=== PATIENT | female | born 1980 | race Caucasian/White ===

== ENCOUNTER 2017-02-10 17:07 | Emergency (ER) | payer BC ==
[~2017-02-10 17:07] MED LIST: CHLO10 PO; TOPI25 PO; TRAZ50TA78 PO; XANA0.5T PO
[2017-02-10 17:16] VITALS: BP 176/100; PULSE 84; RESP 20; TEMP 98.5
--- NOTE | 2017-02-10 18:03 | PD ---
HPI Chief Complaint: Head Injury Time Seen by Provider: 17:55 Travel History International Travel<30 days: No Contact w/Intl Traveler<30days: No Traveled to known affect area: No History of Present Illness HPI Patient is a 36-year-old female who presents to emergency room for evaluation of headache. Patient reports that she tripped over her dog last night and fell backwards her head on a tile floor. Patient reports no loss of consciousness, denies any nausea or vomiting, reports posterior headache. Reports that she went to her pcp's office today and was told to go the ER for a CT study of her head. Patient with no vision changes, nausea vomiting this time. No other complaints. PFSH Past Medical History Blood Disorders: No Depression: Yes Diminished Hearing: No Endocrine: No Genitourinary: No Immune Disorder: No Musculoskeletal: No Psychiatric: Yes (Hx of treatment for Bipolar Disorder) Reproductive: No Respiratory: No ?: Not : 2 Para: 1 : 1 Tubal Ligation: Yes Past Surgical History Abdominal Surgery: No Appendectomy: Yes Cardiac Surgery: No Section: Yes Ear Surgery: No Endocrine Surgery: No Eye Surgery: No Genitourinary Surgery: No Gynecologic Surgery: No Oral Surgery: No Thoracic Surgery: No Social History Alcohol Use: Yes () Tobacco Use: No Substance Use: Yes () Allergies-Medications (Allergen,Severity, Reaction): Coded Allergies: penicillin G (Unverified Allergy, Severe, HIVES, 02/10/17) Reported Meds & Prescriptions Reported Meds & Active Scripts Active Desyrel (Trazodone HCl) 50 Mg Tab 100 Mg PO HS 14 Days Topamax (Topiramate) 25 Mg Tab 25 Mg PO Q12HR 7 Days Librium 10 mg Cap (Chlordiazepoxide) 10 Mg Cap 10 Mg PO TID take 1 pill TID for 1 day then 1 pill twice a day for 3 days then 1 pill daily for 3 days Reported Xanax 0.5 mg (Alprazolam) Alprazolam 0.5 mg Tab 1 Tab PO BID PRN Review of Systems General / Constitutional: No: Fever Eyes: No: Visual changes HENT: Positive: Headaches Cardiovascular: No: Chest Pain or Discomfort Respiratory: No: Shortness of Breath Gastrointestinal: No: Abdominal Pain Genitourinary: No: Dysuria Musculoskeletal: No: Pain Skin: No Rash Neurologic: Positive: Headache, No: Weakness Psychiatric: No: Depression Endocrine: No: Polydipsia Hematologic/Lymphatic: No: Easy Bruising Physical Exam Narrative GENERAL: NAD, Nontoxic SKIN: Focused skin assessment warm/dry. HEAD: Atraumatic. Normocephalic. EYES: Pupils equal and round. No scleral icterus. No injection or drainage. ENT: No nasal bleeding or discharge. Mucous membranes pink and moist. NECK: Trachea midline. No JVD. CARDIOVASCULAR: Regular rate and rhythm. No murmur appreciated. RESPIRATORY: No accessory muscle use. Clear to auscultation. Breath sounds equal bilaterally. GASTROINTESTINAL: Abdomen soft, non-tender, nondistended. Hepatic and splenic margins not palpable. MUSCULOSKELETAL: No obvious deformities. No clubbing. No cyanosis. No edema. NEUROLOGICAL: Awake and alert. No obvious cranial nerve deficits. Motor grossly within normal limits. Normal speech. CN 2-12 grossly intact with no neurological deficits PSYCHIATRIC: Appropriate mood and affect; insight and judgment normal. Data Data Last Documented VS Vital Signs Date Time Temp Pulse Resp B/P (MAP) Pulse Ox O2 Delivery O2 Flow Rate FiO2 02/10/17 17:16 98.5 84 20 176/100 (125) Orders Orders Ct Brain W/O Iv Contrast(Rout) (02/10/17 17:58) [facility] Medical Decision Making Medical Screen Exam Complete: Yes Emergency Medical Condition: Yes Interpretation(s) Vital Signs Date Time Temp Pulse Resp B/P (MAP) Pulse Ox O2 Delivery O2 Flow Rate FiO2 02/10/17 17:16 98.5 84 20 176/100 (125) Differential Diagnosis Differential includes concussion, intracranial hemorrhage, scalp hematoma Narrative Course Patient is a 36-year-old female who presents to emergency room complaints of headache. Reports that she tripped over her dog last night and hit the back of her head on a tile floor. Reports no LOC, no dizzyness. She was told to come to the ER for CT study of her head. Patient has benign neurological evaluation , CT of the head ordered at request of patient's primary care doctor. mechanical system technician went to bring patient to CT. Patient refuses further workup and walked out of the ER after informed consent. AMA: The risks of leaving against medical advice without further evaluation treatment were discussed with the patient. These risks include cardiac dysfunction, cardiac dysrhythmia, possible heart attack, possible stroke or . The patient indicated understanding of these risks and appeared to have the capacity to make this decision. Patient understands that she may return to the emergency room at any time should she require further medical workup for her symptoms. Diagnosis Primary Impression: Left against medical advice Patient Instructions: General Instructions Additional Instructions: You may return to the ER at any time should you be agreeable to medical workup for your symptoms Please follow up with your primary care doctor as soon as possible Disposition: 07 AGAINST MEDICAL ADVICE Condition: Serious Eduarda Chopra DO Feb 10, 2017 18:03
== END 2017-02-10 18:23 | disposition left against medical advice (07) ==
LOC: PHED 17:07 → PHEFT 18:23
DX: S09.90XA Unspecified injury of head, initial encounter (principal); W01.0XXA Fall on same level from slipping, tripping and stumbling without subsequent striking against object, initial encounter
CPT/HCPCS: 99281

== ENCOUNTER 2017-03-22 10:45 | Emergency (ER) | payer BC ==
[~2017-03-22] VITALS: Ht 154.9 cm; Wt 68.0 kg
[2017-03-22 10:48] VITALS: BP 127/79; PULSE 116; RESP 19; TEMP 97.8; O2SAT 96
[2017-03-22] MEDS ORDERED: BUPR150CR PO (11:10)
[2017-03-22] MEDS ORDERED: XANA1TAB2 PO (11:10)
[2017-03-22] MEDS ORDERED: TRAZ100T6 PO (11:10)
[2017-03-22] MEDS ORDERED: TOPA25TA8 PO (11:10)
[2017-03-22] MEDS ORDERED: SODIUM CHLOR 0.9% 1000 ML INJ 1,000 ML IV SCH (11:15)
--- NOTE | 2017-03-22 11:35 | PD ---
HPI Chief Complaint: Alcohol/Drug Intoxication Time Seen by Provider: 11:12 Travel History International Travel<30 days: No Contact w/Intl Traveler<30days: No Traveled to known affect area: No History of Present Illness HPI 37-year-old female that presents to the ED for evaluation of alcohol and Xanax abuse. Patient came here voluntarily with for help with her abuse. Per patient she is also feeling suicidal. She denies any homicidal ideation. She is a chronic history of bipolar disorder and has been compliant with her Wellbutrin but she also states that she used to be on Topamax but she does not take anymore because it makes her feel bad. She's also been abusing alcohol every day. She came here intoxicated because this is the only way she could actually come here. She denies any fevers chills or sweats. Patient has had multiple falls because of her intoxication. She takes Xanax that is prescribed for her for anxiety. She took 6 Xanax today and drank wine before coming. Before patient could be put on the bed she had a fall that was witnessed by technical sales representative and nurse and she hit her head. She did not lose consciousness. She denies any pain at this time. She does state that she injured her left ankle about a week ago and was seen in urgent care and was told that there was nothing broken. She does self cut on the left arm and she has some new cuts from recent cutting. Allergies to penicillin. She denies drinking or taking the Xanax to end herself. History is limited because of patient's acute intoxication. PFSH Past Medical History Blood Disorders: No Bipolar Disorder: Yes Depression: Yes Diabetes: No (See EMR) Diminished Hearing: No Endocrine: No Genitourinary: No Immune Disorder: No Musculoskeletal: No Psychiatric: Yes (Hx of treatment for Bipolar Disorder) Reproductive: No Respiratory: No Tetanus Vaccination: > 5 Years Influenza Vaccination: No ?: Not : 2 Para: 1 : 1 Tubal Ligation: Yes Past Surgical History Abdominal Surgery: No Appendectomy: Yes Cardiac Surgery: No Section: Yes Ear Surgery: No Endocrine Surgery: No Eye Surgery: No Genitourinary Surgery: No Gynecologic Surgery: No Oral Surgery: No Thoracic Surgery: No Other Surgery: Yes (APPY) Social History Alcohol Use: Yes (DAILY) Tobacco Use: No Substance Use: Yes ([facility]) Allergies-Medications (Allergen,Severity, Reaction): Coded Allergies: penicillin G (Unverified Allergy, Severe, HIVES, 03/22/17) Reported Meds & Prescriptions Reported Meds & Active Scripts Active Reported Topamax (Topiramate) 25 Mg Tab 25 Mg PO BID Wellbutrin SR 12 HR (Bupropion HCl) 150 Mg Tab 150 Mg PO DAILY Xanax (Alprazolam) 1 Mg Tab 1 Mg PO BID PRN Trazodone (Trazodone HCl) 100 Mg Tablet 100 Mg PO BID Review of Systems ROS Limitations: Intoxication Except as stated in HPI: all other systems reviewed are Neg Physical Exam Exam Limitations: Intoxication Narrative GENERAL: SKIN: Warm and dry. HEAD: Atraumatic. Normocephalic. EYES: Pupils equal and round. No scleral icterus. No injection or drainage. ENT: No nasal bleeding or discharge. Mucous membranes pink and moist. Tongue is midline. No uvula deviation. NECK: Trachea midline. No JVD. CARDIOVASCULAR: Regular rate and rhythm. No murmurs, S3, S4. RESPIRATORY: No accessory muscle use. Clear to auscultation. Breath sounds equal bilaterally. GASTROINTESTINAL: Abdomen soft, non-tender, nondistended. Hepatic and splenic margins not palpable. MUSCULOSKELETAL: Extremities without clubbing, cyanosis, or edema. No obvious deformities. Full range of motion of the upper and lower extremities bilaterally. 2+ pulses bilaterally. No lumbar, thoracic, cervical spine tenderness to palpation. NEUROLOGICAL: Awake and alert. No obvious cranial nerve deficits. Motor grossly within normal limits. Five out of 5 muscle strength in the arms and legs. Normal speech. PSYCHIATRIC: Intoxicated mood and affect; insight and judgment normal. Data Data Last Documented VS Vital Signs Date Time Temp Pulse Resp B/P (MAP) Pulse Ox O2 Delivery O2 Flow Rate FiO2 03/22/17 11:01 110 18 96 Room Air 03/22/17 10:48 97.8 127/79 (95) Orders Orders Complete Blood Count With Diff (03/22/17 11:12) Comprehensive Metabolic Panel (03/22/17 11:12) Psych Screen (03/22/17 11:12) Drug Screen, Random Urine (03/22/17 11:12) Alcohol (Ethanol) (03/22/17 11:12) Salicylates (Aspirin) (03/22/17 11:12) Tylenol (Acetaminophen) (03/22/17 11:12) Ct Brain W/O Iv Contrast(Rout) (03/22/17 ) Sodium Chlor 0.9% 1000 Ml Inj (Ns 1000 M (03/22/17 11:15) Electrocardiogram (03/22/17 11:08) Alcohol Withdrawal Asmt-Ciwa ONCE (03/22/17 12:02) Ondansetron Inj (Zofran Inj) (03/22/17 12:15) Acetaminophen (Tylenol) (03/22/17 12:15) Flumazenil Inj (Romazicon Inj) (03/22/17 12:15) Lorazepam (Ativan) (03/22/17 12:15) Lorazepam Inj (Ativan Inj) (03/22/17 12:15) Lorazepam (Ativan) (03/22/17 12:15) Lorazepam Inj (Ativan Inj) (03/22/17 12:15) Lorazepam Inj (Ativan Inj) (03/22/17 12:15) Lorazepam Inj (Ativan Inj) (03/22/17 12:15) Labs Laboratory Tests Test 03/22/17 11:05 White Blood Count 4.6 TH/MM3 Red Blood Count 4.33 MIL/MM3 Hemoglobin 15.4 GM/DL Hematocrit 43.7 % Mean Corpuscular Volume 100.9 FL Mean Corpuscular Hemoglobin 35.5 PG Mean Corpuscular Hemoglobin Concent 35.1 % Red Cell Distribution Width 13.8 % Platelet Count 266 TH/MM3 Mean Platelet Volume 6.9 FL Neutrophils (%) (Auto) 51.1 % Lymphocytes (%) (Auto) 34.1 % Monocytes (%) (Auto) 13.1 % Eosinophils (%) (Auto) 0.5 % Basophils (%) (Auto) 1.2 % Neutrophils # (Auto) 2.4 TH/MM3 Lymphocytes # (Auto) 1.6 TH/MM3 Monocytes # (Auto) 0.6 TH/MM3 Eosinophils # (Auto) 0.0 TH/MM3 Basophils # (Auto) 0.1 TH/MM3 CBC Comment DIFF FINAL Differential Comment Blood Urea Nitrogen 9 MG/DL Creatinine 0.46 MG/DL Random Glucose 79 MG/DL Albumin 4.4 GM/DL Calcium Level 8.5 MG/DL Aspartate Amino Transf (AST/SGOT) 60 U/L Alanine Aminotransferase (ALT/SGPT) 45 U/L Sodium Level 138 MEQ/L Potassium Level 3.9 MEQ/L Chloride Level 105 MEQ/L Carbon Dioxide Level 22.6 MEQ/L Anion Gap 10 MEQ/L Estimat Glomerular Filtration Rate 154 ML/MIN MDM Medical Decision Making Medical Screen Exam Complete: Yes Emergency Medical Condition: Yes Medical Record Reviewed: Yes Interpretation(s) CBC & BMP Diagram 03/22/17 11:05 Albumin 4.4, Calcium Level 8.5, Aspartate Amino Transf (AST/SGOT) 60 H, Alanine Aminotransferase (ALT/SGPT) [address] 03/22/17 0000 Signed Impressions: Service Date/Time: Wednesday, March 22, 2017 11:24 - CONCLUSION: No acute disease. Iglesia Shepard MD Differential Diagnosis Depression versus suicidal ideation versus anxiety versus adjustment disorder versus mood disorder versus bipolar disorder versus schizophrenia versus paranoid disorder versus psychosis versus substance abuse versus alcohol abuse versus alcohol induced psychosis versus homicidality addition versus cutting versus personality disorder Narrative Course 37-year-old female that presents to the ED for evaluation of substance abuse as well as mood disorder. Patient was properly examined and was found to have signs and symptoms consistent with substance abuse and mood disorder. She does have a history of bipolar disorder. She takes medications for this. She's also been self mutilating. She came here voluntarily at this time. We'll keep her voluntary for now. Labs and imaging were drawn. Physical exam is reassuring. Somewhat hard to assess because of her intoxication. Patient was started on IV fluids. EKG was done. Labs and imaging showed no sign of acute disease other than alcohol and benzos. Patient was medically cleared. Okay to be seen by psych. Mental health screening was discussed with the patient. Diagnosis Primary Impression: Bipolar disorder Qualified Codes: F31.32 - Bipolar disorder, current episode depressed, moderate Additional Impressions: Benzodiazepine dependence Alcohol dependence Qualified Codes: F10.29 - Alcohol dependence with unspecified alcohol-induced disorder Josh Fritz Mar 22, 2017 11:35
[2017-03-22 11:58] LABS: AUTOMATED NEUTROPHIL # 2.4 TH/MM3 (1.8-7.7); BASOPHIL # 0.1 TH/MM3 (0-0.2); BASOPHIL % 1.2 % (0.0-2.0); EOSINOPHIL % 0.5 % (0.0-4.0); HEMATOCRIT 43.7 % (35.0-46.0); HEMO FLAGS DIFF FINAL; LYMPH % 34.1 % (9.0-44.0); LYMPHOCYTE # 1.6 TH/MM3 (1.0-4.8); MEAN CELL VOLUME 100.9 FL (80.0-100.0); MEAN CORPUSCULAR HEMOGLOBIN 35.5 PG (27.0-34.0); MEAN CORPUSCULAR HGB CONC 35.1 % (32.0-36.0); MONO % 13.1 % (0.0-8.0); NEUT % 51.1 % (16.0-70.0); PLATELET COUNT 266 TH/MM3 (150-450); RED BLOOD COUNT 4.33 MIL/MM3 (4.00-5.30); RED CELL DISTRIBUTION WIDTH 13.8 % (11.6-17.2); WHITE BLOOD COUNT 4.6 TH/MM3 (4.0-11.0)
--- NOTE | 2017-03-22 12:10 | RADRPT ---
EXAM DATE/TIME: 03/22/2017 11:24 [facility] COMPARISON: No previous studies available for comparison. INDICATIONS : Multiple falls RADIATION DOSE: 56.35 CTDIvol (mGy) MEDICAL HISTORY : Cardiovascular disease. SURGICAL HISTORY : Appendectomy. Tubal ligation. section. ENCOUNTER: Initial ACUITY: 1 day PAIN SCALE: 0/10 LOCATION: cranial TECHNIQUE: Multiple contiguous axial images were obtained of the head. Using automated exposure control and adj ustment of the mA and/or kV according to patient size, radiation dose was kept as low as reasonably a chievable to obtain optimal diagnostic quality images. DICOM format image data is available electro nically for review and comparison. FINDINGS: CEREBRUM: The ventricles are normal for age. No evidence of midline shift, mass lesion, hemorrhage or acute in farction. No extra-axial fluid collections are seen. POSTERIOR FOSSA: The cerebellum and brainstem are intact. The 4th ventricle is midline. The cerebellopontine angle i s unremarkable. EXTRACRANIAL: The visualized portion of the orbits is intact. SKULL: The calvaria is intact. No evidence of skull fracture. CONCLUSION: No acute disease. Iglesia Shepard MD on March 22, 2017 at 12:07 Board Certified Radiologist. This report was verified electronically.
[2017-03-22] MEDS ORDERED: LORazepam 2 MG/ML VIAL IV PUSH PRN ×4 (12:15)
[2017-03-22] MEDS ORDERED: ACETAMINOPHEN 325 MG TAB PO PRN (12:15)
[2017-03-22] MEDS ORDERED: FLUMAZENIL 0.5 MG/5 ML VIAL IV PUSH PRN (12:15)
[2017-03-22] MEDS ORDERED: LORazepam 2 MG TAB PO PRN (12:15)
[2017-03-22] MEDS ORDERED: ONDANSETRON HCL 4 MG/2 ML VIAL IV PUSH PRN (12:15)
[2017-03-22 12:29] LABS: ANION GAP 10 MEQ/L (5-15); AST (GOT) 60 U/L (15-37); BICARBONATE 22.6 MEQ/L (21.0-32.0); BLOOD UREA NITROGEN 9 MG/DL (7-18); CHLORIDE 105 MEQ/L (98-107); GLOMERULAR FILTRATION RATE 154 ML/MIN (>89); POTASSIUM 3.9 MEQ/L (3.5-5.1); SODIUM (NA) 138 MEQ/L (136-145)
[2017-03-22 12:30] LABS: ALT (GPT) 45 U/L (10-53)
[2017-03-22 12:39] LABS: ACETAMINOPHEN LESS THAN 2.0 MCG/ML (10.0-30.0); ALKALINE PHOSPHATASE 86 U/L (45-117); TOTAL BILIRUBIN ADULT 0.5 MG/DL (0.2-1.0)
[2017-03-22] MEDS ORDERED: SODIUM CHLOR 0.9% 1000 ML INJ 1,000 ML IV ONE (12:45)
[2017-03-22 12:59] LABS: ALCOHOL 349 MG/DL (0-5)
[2017-03-22 13:58] VITALS: BP 125/68; PULSE 99; RESP 16; O2SAT 99
[2017-03-22] MEDS ORDERED: hydrOXYzine HCL 50 MG TAB PO PRN (19:45)
[2017-03-22 20:22] VITALS: BP 142/94; PULSE 121; RESP 18
[2017-03-22] MEDS: LORazepam 1 MG TAB PO PRN (20:46)
[2017-03-22 22:15] VITALS: BP 133/72; PULSE 123; RESP 18; O2SAT 98
[2017-03-23] MEDS: LORazepam 1 MG TAB PO PRN (02:01)
[2017-03-23] MEDS ORDERED: ONDANSETRON ODT 4 MG TAB PO ONE (06:15)
[2017-03-23 06:23] VITALS: BP 154/86; PULSE 101; RESP 18; O2SAT 97
--- NOTE | 2017-03-23 07:30 | EKG ---
Date Performed: 03/22/2017 Time Performed: 11:08:39 PTAGE: 37 years EKG: SINUS TACHYCARDIA POSSIBLE LEFT ATRIAL ENLARGEMENT ANTEROSEPTAL MYOCARDIAL INFARCTION ABNOR MAL ECG Compared to prior tracing no significant change PREVIOUS TRACING DOCTOR: Jimenez Ga Interpretating Date/Time 03/23/2017 07:28:27
--- NOTE | 2017-03-23 09:18 | PD ---
Physical Exam Date Seen by Provider: Mar 23, 2017 Time Seen by Provider: 09:17 Narrative 37-year-old female previously medically cleared for psychiatric evaluation, was evaluated by psychiatric staff with substance induced mood disorder and psychiatrically cleared for discharge to rehabilitation facility. Patient is continued to be medically stable and discharged Data Data Last Documented VS Vital Signs Date Time Temp Pulse Resp B/P (MAP) Pulse Ox O2 Delivery O2 Flow Rate FiO2 03/23/17 06:23 101 18 154/86 (108) 97 Room Air 03/22/17 10:48 97.8 Orders Orders Complete Blood Count With Diff (03/22/17 11:12) Comprehensive Metabolic Panel (03/22/17 11:12) Psych Screen (03/22/17 11:12) Drug Screen, Random Urine (03/22/17 11:12) Alcohol (Ethanol) (03/22/17 11:12) Salicylates (Aspirin) (03/22/17 11:12) Tylenol (Acetaminophen) (03/22/17 11:12) Ct Brain W/O Iv Contrast(Rout) (03/22/17 ) Sodium Chlor 0.9% 1000 Ml Inj (Ns 1000 M (03/22/17 11:15) Electrocardiogram (03/22/17 11:08) Alcohol Withdrawal Asmt-Ciwa ONCE (03/22/17 12:02) Ondansetron Inj (Zofran Inj) (03/22/17 12:15) Acetaminophen (Tylenol) (03/22/17 12:15) Flumazenil Inj (Romazicon Inj) (03/22/17 12:15) Lorazepam (Ativan) (03/22/17 12:15) Lorazepam Inj (Ativan Inj) (03/22/17 12:15) Lorazepam (Ativan) (03/22/17 12:15) Lorazepam Inj (Ativan Inj) (03/22/17 12:15) Lorazepam Inj (Ativan Inj) (03/22/17 12:15) Lorazepam Inj (Ativan Inj) (03/22/17 12:15) Sodium Chlor 0.9% 1000 Ml Inj (Ns 1000 M (03/22/17 12:45) Ed Urine Pregnancytest Poc (03/22/17 12:38) Diet Regular Basic (03/22/17 Dinner) Hydroxyzine Hcl (Atarax) (03/22/17 19:45) Diet Regular Basic (03/23/17 Breakfast) Ondansetron Odt (Zofran Odt) (03/23/17 06:15) Labs Laboratory Tests Test 03/22/17 11:05 03/22/17 12:45 White Blood Count 4.6 TH/MM3 Red Blood Count 4.33 MIL/MM3 Hemoglobin 15.4 GM/DL Hematocrit 43.7 % Mean Corpuscular Volume 100.9 FL Mean Corpuscular Hemoglobin 35.5 PG Mean Corpuscular Hemoglobin Concent 35.1 % Red Cell Distribution Width 13.8 % Platelet Count 266 TH/MM3 Mean Platelet Volume 6.9 FL Neutrophils (%) (Auto) 51.1 % Lymphocytes (%) (Auto) 34.1 % Monocytes (%) (Auto) 13.1 % Eosinophils (%) (Auto) 0.5 % Basophils (%) (Auto) 1.2 % Neutrophils # (Auto) 2.4 TH/MM3 Lymphocytes # (Auto) 1.6 TH/MM3 Monocytes # (Auto) 0.6 TH/MM3 Eosinophils # (Auto) 0.0 TH/MM3 Basophils # (Auto) 0.1 TH/MM3 CBC Comment DIFF FINAL Differential Comment Blood Urea Nitrogen 9 MG/DL Creatinine 0.46 MG/DL Random Glucose 79 MG/DL Total Protein 8.3 GM/DL Albumin 4.4 GM/DL Calcium Level 8.5 MG/DL Alkaline Phosphatase 86 U/L Aspartate Amino Transf (AST/SGOT) 60 U/L Alanine Aminotransferase (ALT/SGPT) 45 U/L Total Bilirubin 0.5 MG/DL Sodium Level 138 MEQ/L Potassium Level 3.9 MEQ/L Chloride Level 105 MEQ/L Carbon Dioxide Level 22.6 MEQ/L Anion Gap 10 MEQ/L Estimat Glomerular Filtration Rate 154 ML/MIN Salicylates Level 3.2 MG/DL Acetaminophen Level LESS THAN 2.0 MCG/ML Ethyl Alcohol Level 349 MG/DL Urine Opiates Screen NEG Urine Barbiturates Screen NEG Urine Amphetamines Screen NEG Urine Benzodiazepines Screen POS Urine Cocaine Screen NEG Urine Cannabinoids Screen POS MDM Medical Record Reviewed: Yes Supervised Visit with NEERU: Yes Narrative Course 37-year-old female previously medically cleared for psychiatric evaluation, was evaluated by psychiatric staff with substance induced mood disorder and psychiatrically cleared for discharge to rehabilitation facility. Patient is continued to be medically stable and discharged Diagnosis Primary Impression: Bipolar disorder Qualified Codes: F31.32 - Bipolar disorder, current episode depressed, moderate Additional Impressions: Alcohol dependence Qualified Codes: F10.29 - Alcohol dependence with unspecified alcohol-induced disorder Benzodiazepine dependence Patient Instructions: General Instructions Disposition: 01 DISCHARGE HOME Condition: Stable Darrell Arzola Mar 23, 2017 09:18
[2017-03-23 09:39] VITALS: BP 154/86; PULSE 101; RESP 18; O2SAT 97
== END 2017-03-23 11:11 | disposition home or self-care (01) ==
LOC: NEPE 10:45 → NEPJ 03-23 11:11
DX: F31.9 Bipolar disorder, unspecified (principal); F10.129 Alcohol abuse with intoxication, unspecified; F13.20 Sedative, hypnotic or anxiolytic dependence, uncomplicated; R94.31 Abnormal electrocardiogram [ECG] [EKG]; R00.0 Tachycardia, unspecified; Z79.899 Other long term (current) drug therapy; Z88.0 Allergy status to penicillin
CPT/HCPCS: 70450; 80053; 80307; 84703; 85025; 93005; 96360; 96361; 99285; J7030

== ENCOUNTER 2017-10-08 13:01 | Emergency (ER) | payer BC, OTHER ==
[~2017-10-08] VITALS: Ht 154.9 cm; Wt 64.0 kg
[~2017-10-08 13:01] MED LIST changes: +BUPR150CR PO; -CHLO10 PO; +TRAZ100T10 PO; -TRAZ50TA78 PO; -XANA0.5T PO; +XANA1TAB2 PO
[2017-10-08 13:04] VITALS: BP 135/101; PULSE 101; RESP 20; TEMP 98
[2017-10-08] MEDS ORDERED: ARIP2 PO (13:36)
--- NOTE | 2017-10-08 13:54 | PD ---
HPI Chief Complaint: Psychiatric Symptoms Time Seen by Provider: 13:35 Travel History International Travel<30 days: No Contact w/Intl Traveler<30days: No Traveled to known affect area: No History of Present Illness HPI The patient was seen and examined in the presence of the nurse. This patient is brought in under police Singleton act. She is been feeling suicidal. Duration 1 week. Symptoms are moderate to severe. She reports that she recently found out her had been cheating on her. They sent her over the edge. She does have history of psychiatric illness. Yesterday she made superficial cuts to her left forearm with a razor blade. She denies any specific physical symptoms. She admits to drinking last night. She denies illicit drug use. She has a medical card for legal marijuana use. No alleviating factors. No exacerbating factors. PFSH Past Medical History Blood Disorders: No Bipolar Disorder: Yes Depression: Yes Diabetes: No (See EMR) Diminished Hearing: No Endocrine: No Genitourinary: No Immune Disorder: No Musculoskeletal: No Psychiatric: Yes (Hx of treatment for Bipolar Disorder) Reproductive: No Respiratory: No Tetanus Vaccination: Unknown Influenza Vaccination: No ?: Not : 3 Para: 2 : 1 Tubal Ligation: Yes Past Surgical History Abdominal Surgery: No Appendectomy: Yes Cardiac Surgery: No Section: Yes Ear Surgery: No Endocrine Surgery: No Eye Surgery: No Genitourinary Surgery: No Gynecologic Surgery: No Oral Surgery: No Thoracic Surgery: No Other Surgery: Yes (APPY) Social History Alcohol Use: Yes (hx of abuse) Tobacco Use: No Substance Use: Yes (marijuana) Allergies-Medications (Allergen,Severity, Reaction): Coded Allergies: penicillin G (Unverified Allergy, Severe, HIVES, 10/08/17) Reported Meds & Prescriptions Reported Meds & Active Scripts Active Reported Abilify (Aripiprazole) 2 Mg Tab 2 Mg PO DAILY Wellbutrin SR 12 HR (Bupropion HCl) 150 Mg Tab 150 Mg PO BID Xanax (Alprazolam) 1 Mg Tab 1 Mg PO BID PRN Review of Systems General / Constitutional: No: Fever Eyes: No: Visual changes HENT: No: Headaches Cardiovascular: No: Chest Pain or Discomfort Respiratory: No: Shortness of Breath Gastrointestinal: No: Abdominal Pain Genitourinary: No: Dysuria Musculoskeletal: No: Pain Skin: No Rash Neurologic: No: Weakness Psychiatric: Positive: Depression, Suicidal Ideations Endocrine: No: Polydipsia Hematologic/Lymphatic: No: Easy Bruising Physical Exam Narrative GENERAL: Well-nourished, well-developed patient in no apparent distress. SKIN: Focused skin assessment reveals no rash and nodules. Skin is Warm and dry. She has a parallel superficial cuts to the left wrist. There is one isolated cut that is a bit deeper HEAD: Atraumatic. Normocephalic. EYES: Pupils equal and round. No scleral icterus. No injection or drainage. ENT: No nasal bleeding or discharge. Mucous membranes pink and moist. NECK: Trachea midline. No JVD. CARDIOVASCULAR: Regular rate and rhythm. No murmur appreciated. RESPIRATORY: No accessory muscle use. Clear to auscultation. Breath sounds equal bilaterally. GASTROINTESTINAL: Abdomen soft, non-tender, nondistended. Hepatic and splenic margins not palpable. MUSCULOSKELETAL: No obvious deformities. No clubbing. No cyanosis. No edema. NEUROLOGICAL: Awake and alert. No obvious cranial nerve deficits. Motor grossly within normal limits. Normal speech. PSYCHIATRIC: Depressed mood and flat affect; insight and judgment poor . Data Data Last Documented VS Vital Signs Date Time Temp Pulse Resp B/P (MAP) Pulse Ox O2 Delivery O2 Flow Rate FiO2 10/08/17 13:04 98.0 101 20 135/101 (112) Orders Orders Foot, Complete ([id number]) (10/08/17 ) Complete Blood Count With Diff (10/08/17 13:44) Comprehensive Metabolic Panel (10/08/17 13:44) Thyroid Stimulating Hormone (10/08/17 13:44) Ed Urine Pregnancytest Poc (10/08/17 13:44) Psych Screen (10/08/17 13:44) Drug Screen, Random Urine (10/08/17 13:44) Alcohol (Ethanol) (10/08/17 13:44) Labs Laboratory Tests Test 10/08/17 13:15 10/08/17 13:49 White Blood Count 5.8 TH/MM3 Red Blood Count 4.78 MIL/MM3 Hemoglobin 16.1 GM/DL Hematocrit 46.7 % Mean Corpuscular Volume 97.8 FL Mean Corpuscular Hemoglobin 33.7 PG Mean Corpuscular Hemoglobin Concent 34.5 % Red Cell Distribution Width 13.9 % Platelet Count 431 TH/MM3 Mean Platelet Volume 6.9 FL Neutrophils (%) (Auto) 50.1 % Lymphocytes (%) (Auto) 33.7 % Monocytes (%) (Auto) 14.4 % Eosinophils (%) (Auto) 0.6 % Basophils (%) (Auto) 1.2 % Neutrophils # (Auto) 2.9 TH/MM3 Lymphocytes # (Auto) 1.9 TH/MM3 Monocytes # (Auto) 0.8 TH/MM3 Eosinophils # (Auto) 0.0 TH/MM3 Basophils # (Auto) 0.1 TH/MM3 CBC Comment DIFF FINAL Differential Comment Blood Urea Nitrogen 6 MG/DL Creatinine 0.59 MG/DL Random Glucose 77 MG/DL Total Protein 8.3 GM/DL Albumin 4.3 GM/DL Calcium Level 8.2 MG/DL Alkaline Phosphatase 92 U/L Aspartate Amino Transf (AST/SGOT) 39 U/L Alanine Aminotransferase (ALT/SGPT) 35 U/L Total Bilirubin 0.6 MG/DL Sodium Level 141 MEQ/L Potassium Level 4.0 MEQ/L Chloride Level 105 MEQ/L Carbon Dioxide Level 24.7 MEQ/L Anion Gap 11 MEQ/L Estimat Glomerular Filtration Rate 115 ML/MIN Thyroid Stimulating Hormone 3rd Gen 1.180 uIU/ML Ethyl Alcohol Level 190 MG/DL Urine Opiates Screen NEG Urine Barbiturates Screen NEG Urine Amphetamines Screen POS Urine Benzodiazepines Screen POS Urine Cocaine Screen NEG Urine Cannabinoids Screen POS MDM Medical Decision Making Medical Screen Exam Complete: Yes Emergency Medical Condition: Yes Medical Record Reviewed: Yes Differential Diagnosis Suicidal ideation, adjustment disorder, depression Narrative Course I have reviewed the patient's electronic medical record. Patient has been seen here before for psychiatric problems. I have ordered medical clearance workup. This will include labs Urine is negative Nurse will apply Steri-Strips to the one isolated razor blade cut on her left forearm that is slightly open. Psych screen has been ordered as she is here under the Singleton act CBC is normal Metabolic profile is normal Alcohol is 190 suggesting acute intoxication Tox screen is positive for 3 different substances Substances will metabolize as well the alcohol She is is medically stable as I can make her. Disposition will be per psychiatry after psych screening Diagnosis Primary Impression: Depression with suicidal ideation Additional Impression: Alcohol intoxication Qualified Codes: F10.929 - Alcohol use, unspecified with intoxication, unspecified Ward Ramirez MD October 08, 2017 13:54
--- NOTE | 2017-10-08 14:08 | RADRPT ---
EXAM DATE/TIME: 10/08/2017 13:53 [facility] COMPARISON: No previous studies available for comparison. INDICATIONS : Pain in left foot after slamming door on it. MEDICAL HISTORY : None. SURGICAL HISTORY : None. ENCOUNTER: Initial ACUITY: 4 - 6 days PAIN SCORE: 7/10 LOCATION: Left Foot. FINDINGS: Three view examination of the left foot demonstrates no soft tissue swelling, dislocation, or fractur e. The tarsal bones appear intact. The interphalangeal and metatarsophalangeal joints are intact. The calcaneus is intact. Bony mineralization is normal. CONCLUSION: Negative for fracture or dislocation. Follow up in 7-10 days is suggested if symptoms persist. Santos Hendrickson MD FACR on October 08, 2017 at 14:05 Board Certified Radiologist. This report was verified electronically.
[2017-10-08 14:13] LABS: AUTOMATED NEUTROPHIL # 2.9 TH/MM3 (1.8-7.7); BASOPHIL # 0.1 TH/MM3 (0-0.2); BASOPHIL % 1.2 % (0.0-2.0); EOSINOPHIL % 0.6 % (0.0-4.0); HEMATOCRIT 46.7 % (35.0-46.0); HEMOGLOBIN 16.1 GM/DL (11.6-15.3); LYMPH % 33.7 % (9.0-44.0); LYMPHOCYTE # 1.9 TH/MM3 (1.0-4.8); MEAN CELL VOLUME 97.8 FL (80.0-100.0); MEAN CORPUSCULAR HEMOGLOBIN 33.7 PG (27.0-34.0); MEAN CORPUSCULAR HGB CONC 34.5 % (32.0-36.0); MEAN PLATELET VOLUME 6.9 FL (7.0-11.0); MONO % 14.4 % (0.0-8.0); MONOCYTE # 0.8 TH/MM3 (0-0.9); NEUT % 50.1 % (16.0-70.0); PLATELET COUNT 431 TH/MM3 (150-450); RED BLOOD COUNT 4.78 MIL/MM3 (4.00-5.30); RED CELL DISTRIBUTION WIDTH 13.9 % (11.6-17.2); WHITE BLOOD COUNT 5.8 TH/MM3 (4.0-11.0)
[2017-10-08 14:36] LABS: ALBUMIN 4.3 GM/DL (3.4-5.0); ALT (GPT) 35 U/L (10-53); AST (GOT) 39 U/L (15-37); BICARBONATE 24.7 MEQ/L (21.0-32.0); BLOOD UREA NITROGEN 6 MG/DL (7-18); CALCIUM 8.2 MG/DL (8.5-10.1); CHLORIDE 105 MEQ/L (98-107); CREATININE 0.59 MG/DL (0.50-1.00); GLOMERULAR FILTRATION RATE 115 ML/MIN (>89); GLUCOSE,RANDOM 77 MG/DL (74-106); SODIUM (NA) 141 MEQ/L (136-145)
[2017-10-08 14:45] LABS: ALKALINE PHOSPHATASE 92 U/L (45-117); TOTAL BILIRUBIN ADULT 0.6 MG/DL (0.2-1.0); TOTAL PROTEIN 8.3 GM/DL (6.4-8.2)
[2017-10-08 19:00] VITALS: BP 121/87; PULSE 111; RESP 16; TEMP 98.7; O2SAT 99
[2017-10-08] MEDS ORDERED: hydrOXYzine HCL 25 MG TAB PO PRN (21:00)
[2017-10-08 23:10] VITALS: BP 151/93; PULSE 77; RESP 18; TEMP 98.1; O2SAT 98
[2017-10-09 02:30] VITALS: BP 151/79; PULSE 83; RESP 18; TEMP 97.9; O2SAT 98
--- NOTE | 2017-10-09 08:35 | PD ---
Physical Exam Date Seen by Provider: October 09, 2017 Time Seen by Provider: 08:34 Narrative 37-year-old female previously Singleton acted and medically cleared for psychiatric evaluation, has been seen and evaluated by the psychiatric staff and deemed to be psychiatrically stable for discharge. Patient remains medically stable for discharge at this time. Follow-up will be based on psychiatric note. Data Data Last Documented VS Vital Signs Date Time Temp Pulse Resp B/P (MAP) Pulse Ox O2 Delivery O2 Flow Rate FiO2 10/09/17 02:30 97.9 83 18 151/79 (103) 98 Room Air Orders Orders Foot, Complete ([id number]) (10/08/17 ) Complete Blood Count With Diff (10/08/17 13:44) Comprehensive Metabolic Panel (10/08/17 13:44) Thyroid Stimulating Hormone (10/08/17 13:44) Ed Urine Pregnancytest Poc (10/08/17 13:44) Psych Screen (10/08/17 13:44) Drug Screen, Random Urine (10/08/17 13:44) Alcohol (Ethanol) (10/08/17 13:44) Diet Regular Basic (10/08/17 Dinner) Hydroxyzine Hcl (Atarax) (10/08/17 21:00) Diet Regular Basic (10/09/17 Breakfast) Labs Laboratory Tests Test 10/08/17 13:15 10/08/17 13:49 White Blood Count 5.8 TH/MM3 Red Blood Count 4.78 MIL/MM3 Hemoglobin 16.1 GM/DL Hematocrit 46.7 % Mean Corpuscular Volume 97.8 FL Mean Corpuscular Hemoglobin 33.7 PG Mean Corpuscular Hemoglobin Concent 34.5 % Red Cell Distribution Width 13.9 % Platelet Count 431 TH/MM3 Mean Platelet Volume 6.9 FL Neutrophils (%) (Auto) 50.1 % Lymphocytes (%) (Auto) 33.7 % Monocytes (%) (Auto) 14.4 % Eosinophils (%) (Auto) 0.6 % Basophils (%) (Auto) 1.2 % Neutrophils # (Auto) 2.9 TH/MM3 Lymphocytes # (Auto) 1.9 TH/MM3 Monocytes # (Auto) 0.8 TH/MM3 Eosinophils # (Auto) 0.0 TH/MM3 Basophils # (Auto) 0.1 TH/MM3 CBC Comment DIFF FINAL Differential Comment Blood Urea Nitrogen 6 MG/DL Creatinine 0.59 MG/DL Random Glucose 77 MG/DL Total Protein 8.3 GM/DL Albumin 4.3 GM/DL Calcium Level 8.2 MG/DL Alkaline Phosphatase 92 U/L Aspartate Amino Transf (AST/SGOT) 39 U/L Alanine Aminotransferase (ALT/SGPT) 35 U/L Total Bilirubin 0.6 MG/DL Sodium Level 141 MEQ/L Potassium Level 4.0 MEQ/L Chloride Level 105 MEQ/L Carbon Dioxide Level 24.7 MEQ/L Anion Gap 11 MEQ/L Estimat Glomerular Filtration Rate 115 ML/MIN Thyroid Stimulating Hormone 3rd Gen 1.180 uIU/ML Ethyl Alcohol Level 190 MG/DL Urine Opiates Screen NEG Urine Barbiturates Screen NEG Urine Amphetamines Screen POS Urine Benzodiazepines Screen POS Urine Cocaine Screen NEG Urine Cannabinoids Screen POS MDM Medical Record Reviewed: Yes Supervised Visit with NEERU: Yes Narrative Course 37-year-old female previously Singleton acted and medically cleared for psychiatric evaluation, has been seen and evaluated by the psychiatric staff and deemed to be psychiatrically stable for discharge. Patient remains medically stable for discharge at this time. Follow-up will be based on psychiatric note. Diagnosis Primary Impression: Depression with suicidal ideation Additional Impression: Alcohol intoxication Qualified Codes: F10.929 - Alcohol use, unspecified with intoxication, unspecified Patient Instructions: General Instructions Disposition: 01 DISCHARGE HOME Condition: Stable Darrell Arzola October 09, 2017 08:35
--- NOTE | 2017-10-09 08:52 | PD ---
History of Present Illness Chief Complaint: Psychiatric Symptoms Time Seen by Provider: 08:15 Travel History International Travel<30 Days: No Contact w/Intl Traveler<30days: No Known affected area: No Legal Status Legal Status: Singleton Act Singleton Act Signed By: Cesia Garcia History of Present Illness: Patient is a 37-year-old female with 2 children domicile with family in [place]. Patient was placed under Singleton act by [facility]'s office Singleton act states," Keatonjarett Paul may contact with Kamila Nichole who advised she was suicidal and hurting herself. Flaps showed diabetes cuts to her arms advise she was depressed because of family issues. Satish has been advised she suffers from several mental health issues including bipolar and PTSD." Patient states that she was diagnosed with Bipolar in 2001 and placed on Abilify 2.5mg; Wellbutrin 150 mg bid; Xanax 1m g bid and Vyvanse 70 mg. She admits that she has not been taking her Abilify which caused her sleep deprivation for approximately [address] her in a manic state. She does have cuts to her left wrist which she states happens because that how she manages the pain. Alcohol level on admission was 190.She reports that she was under a Singleton Act two years ago for the same. She states that when she does not take her Abilify she goes into rapid cycling. Her called for help yesterday because was very anxious. 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 The drinking has stopped and due to spinal stenosis and other medical problems she cannot exercise and has turned to painting. Her travels and she made an male internet friend that cause problems in their relationship. This lead to the going on internet dating sites. They have been 18 years and are both committed to going to marriage counseling. They have an appointment on Tuesday with a marriage counselor. Chart reviewed and patient discussed with ZEE Chase. Patient is in a hospital gown in Room J-107. She is alert and oriented x4. Well groomed and looks her stated age. She has good eye contact. Speech normal , tone and rate. Steady gait. Good judgement and insight.No abnormal thought processes. Fund of knowledge is average. Denies SI /HI. Collateral: Patient gave me permission to call her , Antonio at . He states that he spoke with his since she has been in the hospital and she agrees to the following three terms: she will take her Abilify ; she will not drink and she will go to counseling. Antonio feels comfortable with Marie being discharged so that they can go to their counseling appointment in the morning. Based on collateral and patient's presentation, will life the Singleton Act. Patient has medications at home. She has changed insurance companies and will need to secure a new Psychiatrist. Patient is at low risk for harm to self or others. Will discharge with plan for patient to manage her bipolar. Dx: Bipolar Disorder; Depression ; Alcohol Intoxication PFSH Past Medical History Blood Disorders: No Bipolar Disorder: Yes Depression: Yes Diabetes: No (See EMR) Diminished Hearing: No Endocrine: No Genitourinary: No Immune Disorder: No Musculoskeletal: No Psychiatric: Yes (Hx of treatment for Bipolar Disorder) Reproductive: No Respiratory: No Tetanus Vaccination: Unknown Influenza Vaccination: No ?: Not : 3 Para: 2 : 1 Tubal Ligation: Yes Past Surgical History Abdominal Surgery: No Appendectomy: Yes Cardiac Surgery: No Section: Yes Ear Surgery: No Endocrine Surgery: No Eye Surgery: No Genitourinary Surgery: No Gynecologic Surgery: No Oral Surgery: No Thoracic Surgery: No Other Surgery: Yes (APPY) Psychiatric History Psychiatric History Patient has a psychiatrist to manage her Bipolar, Insomnia. She has new insurance and will be finding a new provider. Hx Psychiatric Treatment: BIPOLAR DISORDER, PTSD History of Inpatient Treatment: Yes Social History Hx Alcohol Use: Yes (hx of abuse) Hx Tobacco Use: No Hx Substance Use: Yes Substance Use Type: Alcohol, Marijuana Other Substances Used: LONG HX OPIATE ABUSE, METHADONE USE, IN THE PAST Hx of Substance Use Treatment: Yes Allergies-Medications (Allergen,Severity, Reaction): Coded Allergies: penicillin G (Unverified Allergy, Severe, HIVES, 10/08/17) Reported Meds & Prescriptions Reported Meds & Active Scripts Active Reported Abilify (Aripiprazole) 2 Mg Tab 2 Mg PO DAILY Wellbutrin SR 12 HR (Bupropion HCl) 150 Mg Tab 150 Mg PO BID Xanax (Alprazolam) 1 Mg Tab 1 Mg PO BID PRN Mental Status Examination Appearance: Appropriate Consciousness: Alert Orientation: x4 Motor Activity: Normal gait Speech: Unremarkable Language: Adequate Fund of Knowledge: Adequate Attention and Concentration: Adequate Memory: Unremarkable Mood: Appropriate Affect: Appropriate Thought Process & Associations: Intact Thought Content: Appropriate Hallucination Type: None Delusion Type: None Suicidal Ideation: No Suicidal Plan: No Suicidal Intention: No Homicidal Ideation: No Homicidal Plan: No Homicidal Intention: No Insight: Adequate Judgment: Adequate MDM Medical Decision Making Medical Record Reviewed: Yes Assessment/Plan Patient is a 37 y/o female who is bipolar. She stopped taking her Abilify which cause her to have 3 to 4 days without sleep. Her called for help due to her anxiety. Couple is also have some marital problems and they have a marriage counselor appointment tomorrow , which was confirmed with the . Patient is not suicidal and has agreed to resume her medications and attend counseling. Patient is at low risk for self harm . Will lift Singleton Act and patient will work with her to collaborate on a plan to find a new psychiatrist ( due to insurance changes), avoid drinking and participate in counseling. Orders Orders Foot, Complete ([id number]) (10/08/17 ) Complete Blood Count With Diff (10/08/17 13:44) Comprehensive Metabolic Panel (10/08/17 13:44) Thyroid Stimulating Hormone (10/08/17 13:44) Ed Urine Pregnancytest Poc (10/08/17 13:44) Psych Screen (10/08/17 13:44) Drug Screen, Random Urine (10/08/17 13:44) Alcohol (Ethanol) (10/08/17 13:44) Diet Regular Basic (10/08/17 Dinner) Hydroxyzine Hcl (Atarax) (10/08/17 21:00) Diet Regular Basic (10/09/17 Breakfast) Results Vital Signs Date Time Temp Pulse Resp B/P (MAP) Pulse Ox O2 Delivery O2 Flow Rate FiO2 10/09/17 02:30 97.9 83 18 151/79 (103) 98 Room Air 10/08/17 23:10 98.1 77 18 151/93 (112) 98 Room Air 10/08/17 19:00 98.7 111 16 121/87 (98) 99 Room Air 10/08/17 13:04 98.0 101 20 135/101 (112) Laboratory Tests Test 10/08/17 13:15 10/08/17 13:49 White Blood Count 5.8 Red Blood Count 4.78 Hemoglobin 16.1 Hematocrit 46.7 Mean Corpuscular Volume 97.8 Mean Corpuscular Hemoglobin 33.7 Mean Corpuscular Hemoglobin Concent 34.5 Red Cell Distribution Width 13.9 Platelet Count 431 Mean Platelet Volume 6.9 Neutrophils (%) (Auto) 50.1 Lymphocytes (%) (Auto) 33.7 Monocytes (%) (Auto) 14.4 Eosinophils (%) (Auto) 0.6 Basophils (%) (Auto) 1.2 Neutrophils # (Auto) 2.9 Lymphocytes # (Auto) 1.9 Monocytes # (Auto) 0.8 Eosinophils # (Auto) 0.0 Basophils # (Auto) 0.1 CBC Comment DIFF FINAL Differential Comment Blood Urea Nitrogen 6 Creatinine 0.59 Random Glucose 77 Total Protein 8.3 Albumin 4.3 Calcium Level 8.2 Alkaline Phosphatase 92 Aspartate Amino Transf (AST/SGOT) 39 Alanine Aminotransferase (ALT/SGPT) 35 Total Bilirubin 0.6 Sodium Level 141 Potassium Level 4.0 Chloride Level 105 Carbon Dioxide Level 24.7 Anion Gap 11 Estimat Glomerular Filtration Rate 115 Thyroid Stimulating Hormone 3rd Gen 1.180 Ethyl Alcohol Level 190 Urine Opiates Screen NEG Urine Barbiturates Screen NEG Urine Amphetamines Screen POS Urine Benzodiazepines Screen POS Urine Cocaine Screen NEG Urine Cannabinoids Screen POS Diagnosis Primary Impression: Bipolar disorder Additional Impressions: Depression Alcohol intoxication Prescriptions Ondansetron Odt (Zofran Odt) 4 Mg Tab 4 MG SL Q12HR Y for Nausea/Vomiting for 3 Days, #30 TAB 6 Refills Prov: Vicki Paniagua 10/09/17 Disposition: 01 DISCHARGE HOME Condition: Stable Problem Qualifiers Additional Impressions: Alcohol intoxication Qualified Codes: F10.929 - Alcohol use, unspecified with intoxication, unspecified Vicki Paniagua October 09, 2017 08:52
[2017-10-09] MEDS ORDERED: ONDANSETRON ODT 4 MG TAB PO PRN (09:00)
[2017-10-09] MEDS ORDERED: ZOFR4TAB3 SL ×2 (09:01→09:10)
== END 2017-10-09 10:08 | disposition home or self-care (01) ==
LOC: NEPD 13:01 → NEPJ 10-09 10:08
DX: R45.851 Suicidal ideations (principal); S51.812A Laceration without foreign body of left forearm, initial encounter; M79.672 Pain in left foot; F12.90 Cannabis use, unspecified, uncomplicated; F31.9 Bipolar disorder, unspecified; F10.129 Alcohol abuse with intoxication, unspecified; F43.10 Post-traumatic stress disorder, unspecified; W20.8XXA Other cause of strike by thrown, projected or falling object, initial encounter; X78.8XXA Intentional self-harm by other sharp object, initial encounter; Z88.0 Allergy status to penicillin; Y90.6 Blood alcohol level of 120-199 mg/100 ml
CPT/HCPCS: 73630; 80053; 80307; 84443; 84703; 85025; 99284

== ENCOUNTER 2017-11-16 20:05 | Emergency (ER) | payer BC, OTHER ==
[~2017-11-16] VITALS: Ht 165.1 cm; Wt 70.0 kg
[~2017-11-16 20:05] MED LIST changes: +ARIP2 PO; -TOPI25 PO; -TRAZ100T10 PO; +ZOFR4TAB3 SL
[2017-11-16 20:24] VITALS: BP 116/71; PULSE 99; RESP 22; TEMP 98.9; O2SAT 98
[2017-11-16] MEDS ORDERED: SODIUM CHLOR 0.9% 1000 ML INJ 1,000 ML IV ONE (20:30)
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
[2017-11-16 20:51] LABS: AUTOMATED NEUTROPHIL # 3.7 TH/MM3 (1.8-7.7); BASOPHIL % 0.7 % (0.0-2.0); EOSINOPHIL % 0.4 % (0.0-4.0); HEMATOCRIT 44.1 % (35.0-46.0); HEMOGLOBIN 15.2 GM/DL (11.6-15.3); LYMPH % 25.9 % (9.0-44.0); LYMPHOCYTE # 1.5 TH/MM3 (1.0-4.8); MEAN CELL VOLUME 99.3 FL (80.0-100.0); MEAN CORPUSCULAR HEMOGLOBIN 34.2 PG (27.0-34.0); MEAN CORPUSCULAR HGB CONC 34.5 % (32.0-36.0); MEAN PLATELET VOLUME 7.1 FL (7.0-11.0); MONO % 10.9 % (0.0-8.0); MONOCYTE # 0.6 TH/MM3 (0-0.9); NEUT % 62.1 % (16.0-70.0); PLATELET COUNT 248 TH/MM3 (150-450); RED BLOOD COUNT 4.45 MIL/MM3 (4.00-5.30); RED CELL DISTRIBUTION WIDTH 13.9 % (11.6-17.2); WHITE BLOOD COUNT 5.9 TH/MM3 (4.0-11.0)
[2017-11-16 21:05] LABS: ALBUMIN 3.9 GM/DL (3.4-5.0); AST (GOT) 50 U/L (15-37); BICARBONATE 19.5 MEQ/L (21.0-32.0); BLOOD UREA NITROGEN 6 MG/DL (7-18); CALCIUM 8.3 MG/DL (8.5-10.1); CHLORIDE 111 MEQ/L (98-107); CREATININE 0.71 MG/DL (0.50-1.00); GLOMERULAR FILTRATION RATE 93 ML/MIN (>89); GLUCOSE,RANDOM 83 MG/DL (74-106); SODIUM (NA) 144 MEQ/L (136-145)
[2017-11-16 21:06] LABS: ALT (GPT) 50 U/L (10-53)
[2017-11-16 21:14] LABS: BILIRUBIN, URINE NEG (NEG); BLOOD, URINE NEG (NEG); GLUCOSE,URINE NEG (NEG); KETONE, URINE NEG (NEG); NITRITE,URINE NEG (NEG); URINE COLOR Straw (YELLW/STRAW); URINE LEUKOCYTE ESTERASE NEG (NEG)
[2017-11-16 21:15] LABS: ALKALINE PHOSPHATASE 93 U/L (45-117); TOTAL BILIRUBIN ADULT 0.4 MG/DL (0.2-1.0); TOTAL PROTEIN 7.6 GM/DL (6.4-8.2)
== END 2017-11-16 22:20 | disposition home or self-care (01) ==
LOC: NEPC 20:05
DX: F19.10 Other psychoactive substance abuse, uncomplicated (principal); F10.129 Alcohol abuse with intoxication, unspecified; F31.9 Bipolar disorder, unspecified; Z79.899 Other long term (current) drug therapy
CPT/HCPCS: 80053; 80307; 81001; 82550; 84443; 85025; 99283; J7030